=== PATIENT | female | born 1960 | race Caucasian/White ===

== ENCOUNTER 2021-06-05 06:06 | Inpatient (IN) ==
[~2021-06-05 06:06] MED LIST: Buffered Lidocaine 1% SYRIN 1 ml INTRADERM ONE; Lactated Ringers 1000 ml BAG 1,000 ML IV SCH
[2021-06-05] MEDS ORDERED: ceFAZolin 2 GM in NS PREMIX 2 GM/100 ML BAG IVPB ONE (06:19)
[2021-06-05] MEDS ORDERED: fentaNYL 250 mcg/5 ml 50 MCG/ML 5 ml VIAL (250 MCG) ONE (06:55)
[2021-06-05] MEDS ORDERED: Midazolam 2 mg/2 ml VIAL 1 mg/ml 2 ml VIAL (2 mg) ONE (06:55)
[2021-06-05] MEDS ORDERED: Rocuronium 50 mg VIAL 10 mg/ml 5 ml VIAL (50 mg) ONE ×2 (06:55→09:40)
[2021-06-05] MEDS ORDERED: Propofol 10 MG/ML 20 ML BTL ONE (06:55)
[2021-06-05] MEDS ORDERED: Dexmedetomidine 200 mcg/2 ml 2 ml VIAL (200 mcg) ONE (06:56)
[2021-06-05] MEDS ORDERED: Vancomycin 1,000 MG VIAL ONE (07:36)
[2021-06-05] MEDS ORDERED: Phenylephrine IV 10 MG/ML 1 ml VIAL ONE (08:43)
[2021-06-05] MEDS ORDERED: Glycopyrrolate IV 0.2 MG/ML 1 ML VIAL ONE (09:10)
[2021-06-05] MEDS ORDERED: Ondansetron 4 mg VIAL 2 MG/ML 2 ml VIAL IV PRN ×2 (09:43→12:06)
[2021-06-05] MEDS ORDERED: Naloxone 0.4 mg VIAL 0.4 mg/ml 1 ml VIAL IV PRN (09:43)
[2021-06-05] MEDS ORDERED: fentaNYL 100 mcg/2 ml 50 MCG/ML VIAL IV PRN (09:43)
[2021-06-05] MEDS ORDERED: oxyCODONE/Acetamin 5/325 mg TAB PO PRN (09:43)
[2021-06-05] MEDS ORDERED: Ondansetron ODT 4 mg TAB 4 MG TAB PO PRN (12:06)
[2021-06-05] MEDS ORDERED: Magnesium Hydroxide LIQ 30 ML UDC PO PRN (12:06)
[2021-06-05] MEDS ORDERED: Morphine 4 MG/ML VIAL (1 ml) IV PRN (12:06)
[2021-06-05] MEDS ORDERED: diPHENhydraMINE 25 mg TAB PO PRN (12:06)
[2021-06-05] MEDS ORDERED: Lactulose 30 ml UDC PO PRN (12:06)
[2021-06-05] MEDS ORDERED: diPHENhydraMINE IV 50 MG/ML 1 ml VIAL (BENADRYL) IV PRN (12:06)
[2021-06-05] MEDS ORDERED: DiMENhydriNATE IV 50 mg/ml 1 ml VIAL ONE (12:11)
[2021-06-05] MEDS ORDERED: Ondansetron 4 mg VIAL 2 MG/ML 2 ml VIAL ONE (12:11)
[2021-06-05] MEDS: DiMENhydriNATE IV 50 mg/ml 1 ml VIAL IV PUSH PRN ×2 (12:13→12:43)
[2021-06-05] MEDS: Lactated Ringers 1000 ml BAG 1,000 ML IV SCH ×2 (13:54→23:53)
[2021-06-05] MEDS: ceFAZolin 1 GM in Dextrose 1 GM/50 ML BAG IVPB SCH ×2 (16:38→23:49)
[2021-06-05] MEDS: Magnesium Hydroxide LIQ 30 ML UDC PO SCH (19:56)
[2021-06-06 05:42] LABS: Calcium 8.5 mg/dL (8.6-10.3); Potassium 4.2 mmol/L (3.5-5.0); eGFR CKD-EPI 85.1 (>60)
[2021-06-06 06:03] LABS: Hematocrit 34 % (35-47); Hemoglobin 11.3 g/dL (12.0-16.0); Mean Platelet Volume 8.8 fL (7.4-10.4); Platelet Count 239 10^3/uL (150-450)
[2021-06-06] MEDS: Magnesium Hydroxide LIQ 30 ML UDC PO SCH (08:21)
[2021-06-06] MEDS: ceFAZolin 1 GM in Dextrose 1 GM/50 ML BAG IVPB SCH (08:21)
[2021-06-06] MEDS ORDERED: Cholecalciferol (VIT D3) 1,000 unit TAB PO SCH (09:00)
[2021-06-06] MEDS ORDERED: Vitamin THERAPEUTIC TAB PO SCH (09:00)
[2021-06-06 16:09] VITALS: BP 115/78
== END 2021-06-06 18:27 | disposition home or self-care (01) | DRG 322 ==
LOC: AA 06:06 → SSU 13:36
PROVIDERS: ADMIT Orthopaedic Surgery; ATTEND Orthopaedic Surgery

== ENCOUNTER 2023-12-05 08:21 | Observation (INO) ==
[~2023-12-05 08:21] MED LIST changes: -Buffered Lidocaine 1% SYRIN 1 ml INTRADERM ONE; -Lactated Ringers 1000 ml BAG 1,000 ML IV SCH; +Metoclopramide 5 MG/ML VIAL (10 mg) IV PRN; +NS 0.45% 1000 ml BAG 1,000 ML IV SCH; +Naloxone 0.4 mg VIAL 0.4 mg/ml 1 ml VIAL IV PRN; +Ondansetron 4 mg VIAL 2 MG/ML 2 ml VIAL IV PRN
[2023-12-05] MEDS ORDERED: fentaNYL 100 mcg/2 ml 50 MCG/ML VIAL ONE ×2 (09:12→14:48)
[2023-12-05] MEDS ORDERED: Midazolam 2 mg/2 ml VIAL 1 mg/ml 2 ml VIAL (2 mg) ONE (09:12)
[2023-12-05] MEDS ORDERED: ceFAZolin 2 GM PREMIX 2 GM/50 ML BAG ONE (09:13)
[2023-12-05] MEDS ORDERED: Tranexamic Acid 1 GM/100ML BAG 2,000 MG/200 ML BAG IV ONE (09:14)
[2023-12-05] MEDS ORDERED: Rocuronium 50 mg VIAL 10 mg/ml 5 ml VIAL (50 mg) ONE ×2 (09:14→12:40)
[2023-12-05 09:16] LABS: Rapid COVID-19 Molecular Undetected (Undetected)
[2023-12-05] MEDS ORDERED: ROPIVACAINE 5 MG/ML 30 ML BTL (0.5%) ONE (10:48)
[2023-12-05] MEDS ORDERED: Magnesium Hydroxide LIQ 30 ML UDC PO PRN (14:19)
[2023-12-05] MEDS ORDERED: Ondansetron ODT 4 mg TAB 4 MG TAB PO PRN (14:19)
[2023-12-05] MEDS ORDERED: Calcium Carb (TUMS) 500 mg CHEW TAB PO PRN (14:19)
[2023-12-05] MEDS ORDERED: Ondansetron 4 mg VIAL 2 MG/ML 2 ml VIAL IV PRN (14:19)
[2023-12-05] MEDS ORDERED: Lactulose 30 ml UDC PO PRN (14:19)
[2023-12-05] MEDS: fentaNYL 100 mcg/2 ml 50 MCG/ML VIAL IV PRN (14:49)
[2023-12-05] MEDS ORDERED: LUBIPROSTONE 8 MCG PO PRN (15:59)
[2023-12-05] MEDS: Morphine 2 MG/ML SYRINGE IV PRN (17:01)
[2023-12-05] MEDS: Buffered Lidocaine 1% SYRIN 1 ml INTRADERM ONE (17:05)
[2023-12-05] MEDS: Acetaminophen IV 1 GM/100ML 1,000 MG/100 ML BAG IV ONE (17:05)
[2023-12-05] MEDS: Scopolamine 1 mg/72hr PATCH TRANSDERM ONE (17:06)
[2023-12-05] MEDS: Lactated Ringers 1000 ml BAG 1,000 ML IV SCH ×2 (18:54→19:25)
[2023-12-05] MEDS: ceFAZolin 2 GM PREMIX 2 GM/50 ML BAG IV SCH (22:53)
[2023-12-05] MEDS: Erythromycin OPTH OINT APPLIC OINT RIGHT EYE SCH (22:55)
[2023-12-05] MEDS: Magnesium Hydroxide LIQ 30 ML UDC PO SCH (23:32)
[2023-12-06 05:57] LABS: Hematocrit 37.5 % (35-45); Hemoglobin 12.4 g/dL (11.5-14.3); Mean Platelet Volume 8.9 fL (7.5-11.2); Platelet Count 278 10^3/uL (150-450)
[2023-12-06 06:15] LABS: Calcium 8.9 mg/dL (8.6-10.3); Creatinine, Serum 0.75 mg/dL (0.51-0.95); Potassium 4.7 mmol/L (3.5-5.0); eGFR CKD-EPI 88.8 (>60)
[2023-12-06] MEDS: Vitamin THERAPEUTIC TAB PO SCH (08:02)
[2023-12-06] MEDS: Psyllium PAK PO SCH (08:04)
[2023-12-06 10:20] VITALS: BP 92/63
== END 2023-12-06 13:35 | disposition home or self-care (01) ==
LOC: OR 08:21 → SSU 08:21
PROVIDERS: ADMIT Orthopaedic Surgery Adult Reconstructive Orthopaedic Surgery; ATTEND Orthopaedic Surgery Adult Reconstructive Orthopaedic Surgery